=== PATIENT | female | born 1995 | race Caucasian/White ===

== ENCOUNTER 2017-07-22 16:58 | Emergency (ER) | payer SELFPAY ==
[~2017-07-22] VITALS: Ht 157.5 cm; Wt 63.6 kg
[~2017-07-22 16:58] MED LIST: DEPO-PROVER150 MG/M1 IM; LEVAQUIN 5500 MG/TA1 PO
[2017-07-22 17:05] VITALS: BP 116/66
[2017-07-22] MEDS ORDERED: BIRTH CONTROL PO (17:08)
[2017-07-22 17:45] LABS: INFLUENZA A POSITIVE; INFLUENZA B NEGATIVE
[2017-07-22 19:08] VITALS: PULSE 101; TEMP 100.9
== END 2017-07-22 19:09 | disposition home or self-care (01) ==
LOC: COL.ER 16:58
PROVIDERS: Emergency Medicine
DX: J10.1 Influenza due to other identified influenza virus with other respiratory manifestations (principal)
CPT/HCPCS: J2405; J7030